=== PATIENT | male | born 1965 | race Caucasian/White ===

== ENCOUNTER 2025-01-19 17:07 | Emergency (ER) | payer OTHER, SELFPAY ==
[2025-01-19 17:37] VITALS: BP 173/98; PULSE 98; RESP 20; TEMP 36.3; O2SAT 98; BMI 34.7
--- NOTE | 2025-01-19 17:39 | PD.EDRME ---
Rapid Medical Screening Exam RME Arrival date/time: 01/19/25 17:07 59 yo m present to ED for c/o of finger swelling for 3 weeks I have greeted and performed a focused initial assessment of this patient. A comprehensive ED assessment and evaluation of the patient, analysis of all test results, and completion of the medical decision making process will be conducted by additional ED providers. Chief Complaint: Hand/Wrist Problems Time Seen by Provider: 01/19/25 17:20
--- NOTE | 2025-01-19 17:40 | XR_ITS ---
Examination: Fingers, left hand second digit 3 views Technique: AP, oblique, lateral views left hand second digit 3 views. Exam date and time: January 19, 2025 1712 hours INDICATIONS: Swelling and pain involving the second digit today. FINDINGS: Prominent soft tissue swelling about the second digit No fracture Moderate diffuse osteoarthritis second digit No cortical bone destruction IMPRESSION: Prominent soft tissue swelling about the second digit No cortical bone destruction
[2025-01-19 18:08] LABS: Lactate (Lactic Acid) 1.1 mMol/L (0.4-2.0)
[2025-01-19 18:17] LABS: Basophils % (Auto) 0 % (0-2.5); Eosinophils # (Auto) 0.1 Thou/mm3 (0.0-0.5); Eosinophils % (Auto) 1 % (0-10); Hematocrit 36.3 % (41.0-53.0); Hemoglobin 12.5 g/dL (13.5-16.0); Immature Granulocytes % (Auto) 0 % (0-0); Immature Granulocytes Auto 0.03 Thou/mm3 (0.00-0.00); Lymphocytes # (Auto) 1.8 Thou/mm3 (1.0-4.8); Lymphocytes % (Auto) 19 % (10-50); Mean Corpuscular HGB Conc 34.4 g/dl (31.0-37.0); Mean Corpuscular Hemoglobin 30.2 pg (25.0-35.0); Mean Corpuscular Volume 88 fL (80-100); Monocytes # (Auto) 0.9 Thou/mm3 (0.0-0.8); Monocytes % (Auto) 9 % (0-12); Neutrophils # (Auto) 6.6 Thou/mm3 (1.8-7.7); Neutrophils % (Auto) 70 % (37-80); Nucleated Red Blood Cell % 0 /100 WBC (0); Platelet Count 195 Thou/mm3 (140-440); RDW Standard Deviation 41.5 fL (35.1-43.9); Red Blood Count 4.14 Miln/mm3 (4.50-5.90); White Blood Count 9.4 Thou/mm3 (3.8-10.6)
[2025-01-19 18:43] LABS: Sed Rate (ESR) 34 mm/hr (0-20)
[2025-01-19 18:50] LABS: Alanine Aminotransferase 21 U/L (10-49); Albumin, Serum 4.2 gm/dL (3.4-4.8); Albumin/Globulin Ratio 1.5 (1.2-2.2); Alkaline Phosphatase 67 U/L (46-116); Anion Gap 8 (7-16); Aspartate Amino Transferase 41 U/L (0-34); BUN/Creatinine Ratio 14 Ratio (12-20); Bilirubin,Total 0.8 mg/dL (0.3-1.2); Blood Urea Nitrogen 21 mg/dL (9-23); C-Reactive Protein 8.2 mg/dL (0.0-0.9); Carbon Dioxide 24.2 mMol/L (20.0-31.0); Chloride 104 mMol/L (98-107); Creatinine (Component) 1.5 mg/dL (0.6-1.3); Estimated Creatinine Clearance 68.9 mL/min (>60); Globulin 2.8 gm/dL (2.3-3.5); Glucose 157 mg/dL (74-106); Osmolality,Calculated 277 (275-295); Potassium 4.1 mMol/L (3.4-5.1); Procalcitonin 0.12 ng/ml (0.0-0.49); Sodium 136 mMol/L (136-145); eGFR 53 See Note
--- NOTE | 2025-01-19 20:24 | PC.NURSE ---
NO ANSWER AT ER LOBBY OR OUTSIDE ER.
== END 2025-01-19 20:25 | disposition left against medical advice (07) ==
PROVIDERS: Physician Assistant; Emergency Provider Emergency Medicine; PCP Family Medicine
DX: M25.442 Effusion, left hand (principal); Z53.29 Procedure and treatment not carried out because of patient's decision for other reasons
CPT/HCPCS: 36415; 73140; 80053; 83605; 84145; 85025; 85652; 86140; 87040; 87077; 99281

== ENCOUNTER 2025-01-20 13:28 | Emergency (ER) | payer MEDICARE, SELFPAY ==
[2025-01-20 13:52] VITALS: BP 174/94; PULSE 99; RESP 20; TEMP 36.7; O2SAT 96; BMI 36.7
--- NOTE | 2025-01-20 14:02 | EDNOTE_ITS ---
Upper Extremity Injury RME/HPI General Chief Complaint: Extremity Injury, Upper Stated Complaint: SWOLLEN, RED L) 1ST DIGIT Time Seen by Provider: 01/20/25 13:51 Arrival date/time: 01/20/25 13:28 RME / HPI RME / HPI narrative: 59-year-old male patient came in for evaluation regarding left index finger swelling. Onset of symptoms about 2 to 3 weeks prior to ER visit, as patient accidentally stabbed himself with an ice pick, resulting into a puncture wound to the left index finger, since then patient left index finger is getting swollen, with tenderness, severity moderate. Patient was seen here yesterday and patient got upset with the nurses and doctors and decided to leave AGAINST MEDICAL ADVICE. Pain is getting worse. Patient denies any fever. Denies any other complaints. Patient is unable to bend the index finger due to pain. Last tetanus vaccination was 2 years ago Related Data Previous Rx's ?Medication ?Instructions ?Recorded Sulfamethoxazole/Trimethoprim DS * 1 tab PO BID #20 ta bs 07/16/14 (BACTRIM DS *) diphenhydramine HCl 25 mg capsule 25 mg PO Q8H PRN all ergic symptoms 08/23/23 (Benadryl) #30 caps albuterol sulfate 90 mcg/actuation 2 puff inhalation Q 6H PRN 09/11/23 aerosol inhaler shortness of breath or wheez ing #8.5 grams azithromycin 250 mg tablet See Rx Instructions PO .COM PLEX #6 09/11/23 (Zithromax Z-Kevin) tabs cefuroxime axetil 250 mg tablet 250 mg PO BID #14 tabs 09/11/23 hydrocodone 5 mg-acetaminophen 325 1 tab PO BID PRN pa in #10 tabs 11/19/23 mg tablet Allergies Allergy/AdvReac Type Severity Reaction Status Date / Time Penicillins Allergy Unknown HIVES Verified 01/20/25 13:32 Review of Systems Review of Systems Narrative Review of Systems: Review of system reviewed and within normal limits except mentioned in HPI ED Exam Narrative Physical exam: VITAL SIGNS: Reviewed. GENERAL APPEARANCE: Alert and interactive, follows commands, no acute distress, HEAD AND FACE: Non-traumatic. ENT: PERRL, pink conjunctivitis, eyelid no trauma, Mucous membrane moist. NECK: Supple, nontender, no nuchal rigidity. CHEST: No tenderness, no crepitus, no paradoxical movement, no retractions. LUNGS: Clear, well ventilated, symmetric, no rales, no wheezing, no ronchi, no stridor, good breath sounds bilaterally. HEART: Regular rate, regular rhythm, no murmur, no gallops. ABDOMEN: Soft, positive bowel sounds, nondistended, no guarding, nontender, no rebound, no masses, RECTAL: Deferred. GENITAL: Deferred. NEUROLOGICAL: Gross motor function intact sensory function intact, Appropriate for age. MUSCULOSKELETAL: low back nontender, full range of motion. EXTREMITIES: Left index finger swelling, inability to flex the finger, with tenderness SKIN: Color pink, dry, no rash, no lacerations, no abrasions, no contusions. LYMPHATICS: Deferred. Course Quality Measures none Orders Category Date Time Status Blood Culture (Lab) Stat Lab 01/20/25 14:45 Received CBC [CBC] Stat Lab 01/20/25 14:45 Completed CMP [Comprehensive Metabolic Panel] Stat Lab 01/20/25 14:45 Completed Drug Screen,Urine Stat Lab 01/20/25 15:50 Completed Lactate (Lactic Acid) Stat Lab 01/20/25 14:45 Completed Procalcitonin Stat Lab 01/20/25 14:45 Completed Ketorolac Inj [Toradol Inj] Med 01/20/25 21:00 Discontinued 30 mg IVP X1 ONE NIFEdipine [Procardia] Med 01/20/25 21:21 Discontinued 20 mg PO X1 ONE Vancomycin/Ns 1 gm Ivpb 200 ml Med 01/20/25 14:05 Discontinued IV X1 ceFAZolin/D5W 2 GM IV [Ancef 2gm Ivpb] Med 01/20/25 21:00 Discontinued 2 gm in 100 ml IV X1 Vital Signs Vital signs: Vital Signs Temperature 98.1 F 01/20/25 13:52 Pulse Rate 99 01/20/25 13:52 Respiratory Rate 20 01/20/25 13:52 Blood Pressure 174/94 H 01/20/25 13:52 Pulse Oximetry (%) 96 01/20/25 13:52 Oxygen Delivery Method Room Air 01/20/25 13:52 Extremity Injury MDM Narrative MDM Narrative:: 59-year-old male patient came in for evaluation regarding left index finger swelling. Onset of symptoms about 2 to 3 weeks prior to ER visit, as patient accidentally stabbed himself with an ice pick, resulting into a puncture wound to the left index finger, since then patient left index finger is getting swollen, with tenderness, severity moderate. Patient was seen here yesterday and patient got upset with the nurses and doctors and decided to leave AGAINST MEDICAL ADVICE. Pain is getting worse. Patient denies any fever. Denies any other complaints. Patient is unable to bend the index finger due to pain. Last tetanus vaccination was 2 years ago Laboratory workup all came back unremarkable. X-ray of the finger showed swelling to the left index finger. No bony improvement noted. Patient received IV vancomycin IV Ancef. Patient is right-handed. Patient was accepted at [facility] Patient data External records reviewed:: None Clinical information provided by:: patient Social determinants that could affect healthcare access:: none Patient has the following chronic illnesses:: Hypertension not on medications How is presenting disease/condition affected by chronic disease/condition?: uneffected by Evaluation data The following diagnostics were reviewed and interpreted by me:: lab results and radiology exam(s) Lab and/or radiology exams considered but not ordered:: None Interpretation Summary: Laboratory workup all came back unremarkable see results in [facility] Medications / Prescriptions Medications or Prescriptions considered but not ordered:: None Medication administrations:: Medication Administration History Discontinued Medications Vancomycin/Sodium Chloride (Vancomycin/Ns 1 Gm Ivpb) 200 mls @ 120 mls/hr IV X1 ONE Stop: 01/20/25 15:44 Last Infusion: 01/20/25 22:30 Dose: Infused Documented By: Admin: 01/20/25 20:45 Dose: 120 mls/hr Documented By: BRIANNA Cefazolin Sodium (Ancef 2gm Ivpb) 2 gm in 100 mls @ 200 mls/hr IV X1 ONE Stop: 01/20/25 21:29 Last Infusion: 01/21/25 00:00 Dose: Infused Documented By: Admin: 01/20/25 23:25 Dose: 200 mls/hr Documented By: BRIANNA Ketorolac Tromethamine (Ketorolac Inj 30 Mg/Ml Vial) 30 mg IVP X1 ONE Stop: 01/20/25 21:01 Last Admin: 01/20/25 23:25 Dose: 30 mg Documented By: BRIANNA Nifedipine (Nifedipine 10 Mg Capsule) 20 mg PO X1 ONE Stop: 01/20/25 21:22 Last Admin: 01/20/25 22:28 Dose: 20 mg Documented By: Procardia, Toradol Ancef and vancomycin Consultations Consultation(s) initiated? (list below): No Diagnosis Upper Extremity Injury Differential Diagnosis: other (Flexor tendinosis synovitis finger, cellulitis finger, abscess finger) Most likely diagnosis given after review of the tests above:: Flexor tenosynovitis finger Admission Indicated Admission indicated?: not indicated Admission Request Was there a request for admission?: No Admission Attestation Admission request attestation: Accepted to [facility] Disposition Plan Disposition Plan: Transfer Discharge Plan Plan Patient Disposition: [facility] Facility Pt Being Transferred to: [facility] Service Needed for Transfer: Plastic Surgery Prescriptions/Referrals Prescriptions/Med Rec: No Action Sulfamethoxazole/Trimethoprim DS * (BACTRIM DS *) 1 TAB tablet 1 tab PO BID Qty: 20 0RF diphenhydramine HCl [Benadryl] 25 mg capsule 25 mg PO Q8H PRN (Reason: allergic symptoms) Qty: 30 0RF albuterol sulfate 90 mcg/actuation HFA aerosol inhaler 2 puff inhalation Q6H PRN (Reason: shortness of breath or wheezing) Qty: 8.5 0RF azithromycin [Zithromax Z-Kevin] 250 mg tablet See Rx Instructions .ROUTE .COMPLEX Qty: 6 0RF Rx Instructions: For 250 mg dose pack: take 500 mg today (day 1), then 250 mg for 4 days (days 2-5) cefuroxime axetil 250 mg tablet 250 mg PO BID Qty: 14 0RF hydrocodone-acetaminophen 5-325 mg tablet 1 tab PO BID MDD 10 PRN (Reason: pain) Qty: 10 0RF Referrals: Estela Evans MD [Primary Care Provider] - In 1 week Problem List Clinical Impression: Flexor tenosynovitis of finger Patient/Caregiver Discharge Instructions Print Language: Russian Stand Alone Forms: Julia Award Info., Patient Portal Info Letter
[2025-01-20 15:03] LABS: Lactate (Lactic Acid) 1.4 mMol/L (0.4-2.0)
[2025-01-20 15:04] LABS: Basophils % (Auto) 0 % (0-2.5); Eosinophils % (Auto) 0 % (0-10); Hematocrit 35.8 % (41.0-53.0); Hemoglobin 12.2 g/dL (13.5-16.0); Immature Granulocytes % (Auto) 0 % (0-0); Immature Granulocytes Auto 0.03 Thou/mm3 (0.00-0.00); Lymphocytes % (Auto) 13 % (10-50); Mean Corpuscular HGB Conc 34.1 g/dl (31.0-37.0); Mean Corpuscular Hemoglobin 30.5 pg (25.0-35.0); Mean Corpuscular Volume 90 fL (80-100); Monocytes # (Auto) 0.7 Thou/mm3 (0.0-0.8); Monocytes % (Auto) 9 % (0-12); Neutrophils % (Auto) 78 % (37-80); Nucleated Red Blood Cell % 0 /100 WBC (0); Platelet Count 171 Thou/mm3 (140-440); RDW Standard Deviation 42.5 fL (35.1-43.9); White Blood Count 7.6 Thou/mm3 (3.8-10.6)
[2025-01-20 15:56] LABS: Alanine Aminotransferase 20 U/L (10-49); Albumin, Serum 4.2 gm/dL (3.4-4.8); Albumin/Globulin Ratio 1.6 (1.2-2.2); Alkaline Phosphatase 64 U/L (46-116); Anion Gap 6 (7-16); Aspartate Amino Transferase 32 U/L (0-34); BUN/Creatinine Ratio 11 Ratio (12-20); Bilirubin,Total 0.6 mg/dL (0.3-1.2); Blood Urea Nitrogen 14 mg/dL (9-23); Calcium 8.9 mg/dL (8.3-10.6); Calcium (Corrected) 8.9 mg/dL (8.5-10.1); Carbon Dioxide 28.7 mMol/L (20.0-31.0); Chloride 101 mMol/L (98-107); Creatinine (Component) 1.3 mg/dL (0.6-1.3); Estimated Creatinine Clearance 77.1 mL/min (>60); Globulin 2.7 gm/dL (2.3-3.5); Glucose 163 mg/dL (74-106); Osmolality,Calculated 276 (275-295); Potassium 3.8 mMol/L (3.4-5.1); Sodium 136 mMol/L (136-145); Total Protein 6.9 gm/dL (5.7-8.2); eGFR > 60 See Note
[2025-01-20 16:40] LABS: Amphetamine/Methamp Scrn,U Positive (Negative); Barbiturate Screen,Urine Negative (Negative); Benzodiazepines Screen,Urine Negative (Negative); Benzoylecgonine Screen, Ur Negative (Negative); Fentanyl Screen,Urine Negative (Negative); Opiate Screen,Urine Negative (Negative); THC Screen,Urine Positive (Negative)
--- NOTE | 2025-01-20 19:20 | PC.NURSE ---
@1915 CALLED PT OUTSIDE OF ER AND IN ER LOBBY AND NO ANSWER AT THIS TIME.
--- NOTE | 2025-01-20 20:29 | PC.NURSE ---
SRINIVASAN [employer]UN[employer], [employer], AND [facility] FAXED PAPERWORK FOR POSSIBLE TRANSFER NEEDING HAND SPECIALTY
[2025-01-20] MEDS: VANCOMYCIN/NS 1 GM IVPB 200 ML IV (20:45)
[2025-01-20 20:49] VITALS: BP 190/97; BP 200/101; PULSE 91; RESP 20; TEMP 37; O2SAT 98
--- NOTE | 2025-01-20 20:57 | PC.NURSE ---
[facility] DECLINED THEY DONT HAVE SPECIALTY
--- NOTE | 2025-01-20 22:15 | PC.NURSE ---
[facility] DECLINED STATING THAT HAND SURGEON IS AT CAPACITY
[2025-01-20 22:28] VITALS: BP 190/97; PULSE 91
[2025-01-20] MEDS: NIFEdipine 10 MG CAPSULE 20 MG PO (22:28)
[2025-01-20] MEDS: ceFAZolin/D5W 2 GM IV 2 GM/100 ML BAG IV (23:25)
[2025-01-20] MEDS: KETOROLAC INJ 30 MG/ML VIAL IVP (23:25)
--- NOTE | 2025-01-21 00:36 | EDNOTE_ITS ---
Emergency Room Addendum Addendum Narrative: Patient was accepted by Dr. Byers at [facility]. Patient transferred w/o issue.
--- NOTE | 2025-01-21 00:36 | PD.EDADDENDU ---
Emergency Room Addendum Addendum Narrative: Patient was accepted by Dr. Byers at [facility]. Patient transferred w/o issue.
--- NOTE | 2025-01-21 00:40 | PC.NURSE ---
ACCEPTED [facility] ER TO ER DR ANSARI, SPOKE TO MICHEAL, [phone] FOR REPORT
[2025-01-21 01:17] VITALS: BP 164/84; PULSE 88; RESP 19; TEMP 36.6; O2SAT 97
--- NOTE | 2025-01-21 01:36 | PC.NURSE ---
REPORT GIVEN TO BETTE AT [facility]
== END 2025-01-21 01:41 | disposition short-term general hospital (02) ==
PROVIDERS: Nurse Practitioner Family; Emergency Provider Family Medicine; PCP Family Medicine
DX: M65.842 Other synovitis and tenosynovitis, left hand (principal)
CPT/HCPCS: 36415; 80053; 80307; 83605; 84145; 85025; 87040; 96365; 96367; 96375; 99285; J0689; J1885; J3370; A9270

== ENCOUNTER 2025-06-24 17:12 | Emergency (ER) | payer OTHER, SELFPAY ==
[2025-06-24 17:13] VITALS: BMI 34.2
[2025-06-24 17:29] VITALS: BP 143/88; PULSE 100; RESP 20; TEMP 36.8; O2SAT 95
--- NOTE | 2025-06-24 17:41 | PD.EDDENTL ---
ED Dental RME/HPI General Chief complaint: Dental/Oral/Throat Stated complaint: DENTAL PAIN Time Seen by Provider: 06/24/25 17:13 Arrival date/time: 06/24/25 17:12 59-year-old male presents to the Emergency Department today for complaints of dental pain patient reports symptoms ongoing for the last couple of days patient reports prior history of the same Limitations: no limitations Related Data Previous Rx's ?Medication ?Instructions ?Recorded Sulfamethoxazole/Trimethoprim DS * 1 tab PO BID #20 tabs 07/16/14 (BACTRIM DS *) diphenhydramine HCl 25 mg capsule 25 mg PO Q8H PRN allergic symptoms 08/23/23 (Benadryl) #30 caps albuterol sulfate 90 mcg/actuation 2 puff inhalation Q6H PRN 09/11/23 aerosol inhaler shortness of breath or wheezing #8.5 grams azithromycin 250 mg tablet See Rx Instructions PO .COMPLEX #6 09/11/23 (Zithromax Z-Kevin) tabs cefuroxime axetil 250 mg tablet 250 mg PO BID #14 tabs 09/11/23 hydrocodone 5 mg-acetaminophen 325 1 tab PO BID PRN pain #10 tabs 11/19/ mg tablet clindamycin HCl 300 mg capsule 300 mg PO TID 7 days #21 caps 06/24/25 ibuprofen 800 mg tablet 800 mg PO TID PRN pain #30 tabs 06/24/25 Allergies Allergy/AdvReac Type Severity Reaction Status Date / Time Penicillins Allergy Unknown HIVES Verified 06/24/25 17:14 Review of Systems Review of Systems Systems Reviewed: All systems reviewed, normal except as documented Constitutional Constitutional: Reports system reviewed and no additional complaints, except as documented, Denies fever(s) and Denies headache(s) Eyes Eyes: Reports system reviewed and no additional complaints, except as documented and Denies blurry vision ENT Ears, Nose, Mouth, and Throat: Reports system reviewed and no additional complaints, except as documented, Denies headache(s), Reports mouth pain, Denies nasal congestion and Denies nasal discharge Cardiovascular Cardiovascular: Reports system reviewed and no additional complaints, except as documented, Denies chest pain and Denies dyspnea Respiratory Respiratory: Reports system reviewed and no additional complaints, except as documented, Denies chest congestion, Denies cough and Denies dyspnea Gastrointestinal Gastrointestinal: Reports system reviewed and no additional complaints, except as documented and Denies abdominal pain Integumentary/Breasts Skin/Breast: Reports system reviewed and no additional complaints, except as documented and Denies rash Neurologic Neurologic: Reports system reviewed and no additional complaints, except as documented, Reports as per HPI and Denies headache(s) Past Medical History Social History SMOKING STATUS: Current some day smoker ED Exam General Limitations: Present no limitations General appearance: Present alert and in no apparent distress Head Head exam: Present atraumatic Eye Eye exam: Present normal appearance, PERRL and EOMI ENT ENT exam: Present mucous membranes moist and other (Poor dentition acute on chronic dental pain) Neck Neck exam: Present normal inspection, full ROM and trachea midline Chest Chest inspection: Present normal inspection and symmetric chest wall rise Respiratory Respiratory exam: Present normal lung sounds bilaterally Cardiovascular Cardiovascular exam: Present regular rate, normal rhythm and normal heart sounds Abdominal Exam Abdominal exam: Present soft and normal bowel sounds Extremities Exam Extremities exam: Present normal inspection and full ROM Back Exam Back exam: Present normal inspection and full ROM Neurological Exam Neurological exam: Present alert, oriented X3 and CN II-XII intact Psychiatric Psychiatric exam: Present normal affect and normal mood Skin Skin exam: Present warm, dry, intact and normal color Course Quality Measures none Vital Signs Vital signs: Vital Signs Temperature 98.3 F 06/24/25 17:29 Pulse Rate 100 06/24/25 17:29 Respiratory Rate 20 06/24/25 17:29 Blood Pressure 143/88 H 06/24/25 17:29 Pulse Oximetry (%) 95 06/24/25 17:29 Oxygen Delivery Method Room Air 06/24/25 17:29 WNL O2 saturation 95% on room air Dental / Oral MDM Narrative MDM Narrative:: 59-year-old male presents to the Emergency Department today for complaints of dental pain patient reports symptoms ongoing for the last couple of days patient reports prior history of the same On exam patient well-appearing patient does not appear ill or toxic no acute distress On exam patient has dental pain poor dentition and dental caries patient we treated course of antibiotics and pain medication patient struck to follow-up dentist as possible Patient discharged home in no distress to follow-up with dentist in the next 24 to 48 hours and for any worsening symptoms to return to the ER immediately Patient data External records reviewed:: [facility] previous records Clinical information provided by:: patient Social determinants that could affect healthcare access:: none Patient has the following chronic illnesses:: See history How is presenting disease/condition affected by chronic disease/condition?: caused by Evaluation data The following diagnostics were reviewed and interpreted by me:: other (specify) Lab and/or radiology exams considered but not ordered:: Considered not indicated Interpretation Summary: N/A Medications / Prescriptions Medications or Prescriptions considered but not ordered:: Given Medication administrations:: Given Consultations Consultation(s) initiated? (list below): No Diagnosis Dental Differential Diagnosis: gingival abscess, dental caries and toothache Most likely diagnosis given after review of the tests above:: Dental pain Admission Indicated Admission indicated?: not indicated Admission Request Was there a request for admission?: No Disposition Plan Disposition Plan: Discharge Discharge Attestation Discharge Attestation: The patient and all family members were given an opportunity to ask questions and understood the discharge instructions. Discharge instructions specifically effects, indications for sooner follow up or return to the emergency department, and the expected course of current diagnosis. Patient condition: Stable Discharge Plan Plan Patient Disposition: HOME (Self Care) Discharge Disposition comment: Stable Prescriptions/Referrals Prescriptions/Med Rec: New clindamycin HCl 300 mg capsule 300 mg PO TID 7 Days Qty: 21 0RF ibuprofen 800 mg tablet 800 mg PO TID PRN (Reason: pain) Qty: 30 0RF No Action Sulfamethoxazole/Trimethoprim DS * (BACTRIM DS *) 1 TAB tablet 1 tab PO BID Qty: 20 0RF diphenhydramine HCl [Benadryl] 25 mg capsule 25 mg PO Q8H PRN (Reason: allergic symptoms) Qty: 30 0RF albuterol sulfate 90 mcg/actuation HFA aerosol inhaler 2 puff inhalation Q6H PRN (Reason: shortness of breath or wheezing) Qty: 8.5 0RF azithromycin [Zithromax Z-Kevin] 250 mg tablet See Rx Instructions .ROUTE .COMPLEX Qty: 6 0RF Rx Instructions: For 250 mg dose pack: take 500 mg today (day 1), then 250 mg for 4 days (days 2-5) cefuroxime axetil 250 mg tablet 250 mg PO BID Qty: 14 0RF hydrocodone-acetaminophen 5-325 mg tablet 1 tab PO BID MDD 10 PRN (Reason: pain) Qty: 10 0RF Problem List Clinical Impression: Dental caries, Toothache Patient/Caregiver Discharge Instructions Education Materials: ED Dental Cavity Additional Instructions: Please follow up with your primary care doctor in the next 24-48hrs for any worsening symptoms return here immediately Print Language: Jamaican Stand Alone Forms: Julia Award Info., Patient Portal Info Letter PA/[employer]ANCE [employer] MONITOR Supervising Physician PA/S[employer]ILLANCE SYSTEM MONITOR Supervising Physician: Dr. urban
== END 2025-06-24 18:12 | disposition home or self-care (01) ==
LOC: SERX 17:50
PROVIDERS: Emergency Provider Emergency Medicine
DX: K02.9 Dental caries, unspecified (principal); Z88.0 Allergy status to penicillin
CPT/HCPCS: 99282